=== PATIENT | female | born 1960 ===

== ENCOUNTER 2024-09-14 14:34 | Outpatient (AMB) | payer OTHER, MEDICAID, SELFPAY ==
[2024-09-14 14:38] VITALS: BP 120/62; PULSE 75; O2SAT 100; BMI 24.4
--- NOTE | 2024-09-14 14:38 | MHC.OFFVIS ---
Vital Signs 09/14/24 14:38 Height 5 ft 3 in Weight 138 lb BMI 24.4 BP 120/62 Blood Pressure Location Rt brachial Position Sitting Pulse 75 Pulse Source Doppler Pulse Oximetry (%) 100 Oxygen Delivery Method Room Air Intake Visit Reasons: sleep apnea Outpatient Phlebotomist Required: Yes Outpatient Phlebotomist Name: Leatha Parmjit Cid Allergies No Known Allergies Allergy (Verified 09/14/24 14:50) HPI HPI sleep apnea: Details: 64-year-old lady, nonsmoker, with underlying history of hypertension, fibromyalgia, and headaches referred for evaluation of possible sleep apnea. Patient complains of unrestful sleep. She states that she had sleep apnea testing approximately 13 years prior, however she had significant changes in her weight since. She complains of unrestful sleep and daytime sleepiness. [facility] Social History (Updated 09/14/24 @ 14:53 by Leatha Vargas [facility]) Patient Tobacco Use Status: Never used Tobacco Review of Systems Const Reports daytime sleepiness, Denies excessive sweating, Reports fatigue, Denies fever(s), Reports lethargy, Reports malaise, Denies night sweats, Denies snoring and Denies weight loss Eyes Denies blurry vision and Denies itchy eyes ENT Denies nasal congestion, Denies post nasal drip, Denies sinus pain, Denies sinus pressure and Denies other ( Thrush) Card Denies chest pain, Denies pedal edema, Denies dyspnea, Denies orthopnea and Denies paroxysmal nocturnal dyspnea Resp Denies cough, Denies hemoptysis, Denies excessive phlegm production, Denies dyspnea, Denies snoring and Denies wheezing GI Denies abdominal pain and Denies heartburn Skin/Breast Denies rash Neuro Denies memory loss and Denies seizure-like activity Psych Denies memory loss Endo Denies excessive sweating, Reports fatigue and Denies heat intolerance Adan/Lymph Denies easy bruising Aller/Immun Denies itchy eyes, Denies seasonal rhinorrhea and Denies wheezing Physical Exam Vital Signs: Last Vital Signs Pulse 75 09/14/24 14:38 BP 120/62 09/14/24 14:38 Pulse Ox 100 09/14/24 14:38 Oxygen Delivery Method Room Air 09/14/24 14:38 BMI result Body Mass Index 24.4 Const General: no acute distress and alert Nutritional Appearance: not obese Orientation/consciousness: Other orientation findings ( oriented) HEENT Head: Yes atraumatic Eyes General: appearance normal, both eyes and all related structures Sclerae: sclerae normal EOM: EOMs intact bilaterally Neck Neck: Yes supple Lymphatic: no lymphadenopathy noted Resp Effort & Inspection: normal respiratory effort and no use of accessory muscles Auscultation: clear to auscultation bilaterally Cardio Rate: regular rate Rhythm: regular rhythm Heart sounds: no gallops, no murmurs and no rubs Skin General skin exam: other ( warm) Extrem General: No clubbing, No cyanosis and No edema Assessment & Plan Assessment & Plan (1) ZOHAIB (obstructive sleep apnea): Code(s): G47.33 - Obstructive sleep apnea (adult) (pediatric) Category: Medical Plan: Unrestful sleep morning headaches, daytime sleepiness. [place] Sleepiness Scale score of 15. Will obtain home sleep study. Orders: Orders RT home sleep study Today G47.33 - Obstructive sleep apnea (adult) (pediatric) Coding Level of Care Code New Pt Level 3 (41154) Diagnoses ZOHAIB (obstructive sleep apnea) G47.33
== END 2024-09-14 15:06 | disposition home or self-care (01) ==
PROVIDERS: PCP Internal Medicine; Visit Provider Internal Medicine Pulmonary Disease
DX: G47.33 Obstructive sleep apnea (adult) (pediatric) (principal)
CPT/HCPCS: 99203

== ENCOUNTER → 2024-09-14 14:34 | Outpatient (BNVA) | payer OTHER, MEDICAID, SELFPAY | PROVIDERS: PCP Internal Medicine; Visit Provider Internal Medicine Pulmonary Disease ==

== ENCOUNTER → 2024-12-06 14:51 | Outpatient (REF) | payer OTHER, SELFPAY | LOC: HO.SL 14:51 | PROVIDERS: Visit Provider Internal Medicine Pulmonary Disease | DX: G47.33 Obstructive sleep apnea (adult) (pediatric) (principal) | CPT/HCPCS: 95806 ==

== ENCOUNTER → 2024-12-06 15:29 | Outpatient (BNV) | payer OTHER, SELFPAY | PROVIDERS: Visit Provider Internal Medicine | DX: R06.83 Snoring (principal) | CPT/HCPCS: 95806 ==

== ENCOUNTER 2024-12-28 14:59 | Outpatient (AMB) | payer OTHER, MEDICAID, SELFPAY ==
[2024-12-28 15:03] VITALS: BP 132/67; PULSE 76; O2SAT 98; BMI 25.3
--- NOTE | 2024-12-28 15:03 | A.OFFVIS_ITS ---
Vital Signs 12/28/24 15:03 Height 5 ft 3 in Weight 143 lb BMI 25.3 BP 132/67 Blood Pressure Location Rt brachial Position Sitting Pulse 76 Pulse Source Doppler Pulse Oximetry (%) 98 Oxygen Delivery Method Room Air Intake Visit Reasons: Sleep apnea Airplane Electrician Required: Yes Airplane Electrician Name: Leatha Parmjit Cid Allergies No Known Allergies Allergy (Verified 12/28/24 15:07) HPI HPI Sleep apnea: Details: 64-year-old lady, nonsmoker, with underlying history of hypertension, fibromyalgia, and headaches referred for evaluation of possible sleep apnea. Patient complains of unrestful sleep. She states that she had sleep apnea testing approximately 13 years prior, however she had significant changes in her weight since. She complains of unrestful sleep and daytime sleepiness. After the last office visit patient had new sleep study that did not demonstrate any underlying obstructive sleep apnea. [facility] Social History (Updated 09/14/24 @ 14:53 by Leatha Vargas [facility]) Patient Tobacco Use Status: Never used Tobacco Review of Systems Const Denies daytime sleepiness, Denies excessive sweating, Denies fatigue, Denies fever(s), Denies lethargy, Denies malaise, Denies night sweats, Denies snoring and Denies weight loss Eyes Denies blurry vision and Denies itchy eyes ENT Denies nasal congestion, Denies post nasal drip, Denies sinus pain, Denies sinus pressure and Denies other ( Thrush) Card Denies chest pain, Denies pedal edema, Denies dyspnea, Denies orthopnea and Denies paroxysmal nocturnal dyspnea Resp Denies cough, Denies hemoptysis, Denies excessive phlegm production, Denies dyspnea, Denies snoring and Denies wheezing GI Denies abdominal pain and Denies heartburn Musc Denies myalgias, Denies arthralgias and Denies joint swelling Skin/Breast Denies rash Neuro Denies memory loss and Denies seizure-like activity Psych Denies abnormal sleep pattern, Denies anxiety and Denies memory loss Endo Denies excessive sweating, Denies fatigue and Denies heat intolerance Adan/Lymph Denies easy bruising Aller/Immun Denies itchy eyes, Denies seasonal rhinorrhea and Denies wheezing Physical Exam Vital Signs: Last Vital Signs Pulse 76 12/28/24 15:03 BP 132/67 12/28/24 15:03 Pulse Ox 98 12/28/24 15:03 Oxygen Delivery Method Room Air 12/28/24 15:03 BMI result Body Mass Index 25.3 Const General: no acute distress and alert Nutritional Appearance: not obese Orientation/consciousness: Other orientation findings ( oriented) HEENT Head: Yes atraumatic Eyes General: appearance normal, both eyes and all related structures Sclerae: sclerae normal EOM: EOMs intact bilaterally Neck Neck: Yes supple Lymphatic: no lymphadenopathy noted Resp Effort & Inspection: normal respiratory effort and no use of accessory muscles Auscultation: clear to auscultation bilaterally Cardio Rate: regular rate Rhythm: regular rhythm Heart sounds: no gallops, no murmurs and no rubs Skin General skin exam: other ( warm) Extrem General: No clubbing, No cyanosis and No edema Assessment & Plan Assessment & Plan (1) ZOHAIB (obstructive sleep apnea): Code(s): G47.33 - Obstructive sleep apnea (adult) (pediatric) Category: Medical Plan: Results of sleep study reviewed, no evidence of underlying obstructive sleep apnea. Coding Level of Care Code Est Pt Level 3 (78918) Diagnoses ZOHAIB (obstructive sleep apnea) G47.33
--- OUTSIDE RECORDS SUMMARY | 2024-12-28 16:06 | XMS_ITS | Clinical Summary ---
Author Organization [facility] Address [address] [place] [address] Phone Care Team Providers Care Cage Supervisor Name Role Phone Shaina Arthur MD Primary Care Provider [phone]- [phone] Encounters Date Type Department Care Team Description 12/13/2024 2:17 PM EDT - 12/13/2024 11:59 PM EDT Hospital [facility]counter [facility] at [address] [phone] Encounter for screening mammogram for breast cancer Discharge Disposition: Home or Self Care from Last 3 Months Surgical History Surgery Date Site/Laterality Comments OTHER SURGICAL HISTORY PROCEDURE: HISTORICAL TOTAL HYSTERECTOMY W/O BSO; COMMENT: ?fibroids and dermoids ABDOMINAL SURGERY PROCEDURE: HISTORICAL ABDOMINAL SURGERY; COMMENT: after hysterectomy, patient does not know why BREAST BIOPSY 08/31/1991 - 08/30/1992 Left biopsy in [facility] TONSILLECTOMY PROCEDURE: HISTORICAL TONSILLECTOMY COLONOSCOPY 2010 PROCEDURE: HISTORICAL COLONOSCOPY; COMMENT: nml HYSTERECTOMY Family History Medical History Relation Name Comments Breast cancer Aunt maternal x2 Lymphoma Brother Other: oral can Maternal Grandmother Breast cancer Sister Liver cancer Uncle x3 mat pancreatic canc er Colon cancer Neg Hx Relation Name Status Comments Aunt maternal x2 Alive Brother Father Maternal Grandmother Mother Sister Uncle x3 mat Alive Social History Tobacco Use Types Packs/Day Years Used Date Smoking Tobacco: Never Smokeless Tobacco: Never Alcohol Use Standard Drinks/Week Comments No 0 (1 standard drink = 0.6 oz pur e alcohol) Comments No Sex and Gender Information Value Date Recorded Sex Assigned at Not on file Legal Sex Female 10:36 PM EST Gender Identity Not on file Sexual Orientation Not on file Obstetrics History Para Term AB IAB SAB Ectopic Multiple Livin g Live Births 3 Last Filed Vital Signs Vital Sign Reading Time Taken Comments Blood Pressure - - Pulse - - Temperature - - Respiratory Rate - - Oxygen Saturation - - Inhaled Oxygen Concentration - - Weight 62.6 kg (138 lb) 12/13/2024 2:25 PM EDT Height 160 cm (5' 3 ) 12/13/2024 2:25 PM EDT Body Mass Index 24.45 12/13/2024 2:25 PM EDT Plan of Treatment Health Maintenance Due Date Last Done Comments Pneumococcal Vaccine: 50+ Years (1 of 1 - PCV) 2011 Cholesterol Screening (Lipid Panel) 08/03/2022 Colorectal Cancer Screening: Colonoscopy 08/03/2022 Depression Screening 08/03/2022 HIV Screening 08/03/2022 Hepatitis C Screening 08/03/2022 Social Influencers of Health Screening 08/03/2022 Cervical Cancer Screening: Pap Smear 01/12/2023 01/13/2020 COVID-19 Vaccine ( season) 2024 09/16/2022, 04/07/2022, 06/21/2021, Additional history exists Hypertension/CHF/CAD Annual BMP Blood Test 12/14/2024 Influenza Vaccine (Season Ended) 2025 09/26/2022, 06/28/2018, 06/26/2017, Additional history exists Breast Cancer Screening 12/13/2026 12/14/19, 08/13/2023, 08/11/2022, Additional history exists DTaP,Tdap,and Td Vaccines (3 - Td or Tdap) 12/28/2033 12/29/2023, 03/02/2014 Zoster Vaccines Completed 01/30/2023, 04/07/2022 RSV Immunization Adult Patients Completed 09/06/2024 HIB Vaccines Aged Out No longer eligi ble based on patient's age to complete this topic HPV Vaccines Aged Out No longer eligi ble based on patient's age to complete this topic Hepatitis A Vaccines Aged Out No long er eligible based on patient's age to complete this topic Hepatitis B Vaccines Aged Out No long er eligible based on patient's age to complete this topic IPV Vaccines Aged Out No longer eligi ble based on patient's age to complete this topic MMR Vaccines Aged Out No longer eligi ble based on patient's age to complete this topic Meningococcal ACWY Vaccine Aged Out N o longer eligible based on patient's age to complete this topic Meningococcal B Vaccine Aged Out No l onger eligible based on patient's age to complete this topic Pneumococcal Vaccine: Pediatrics (0 to 5 Years) and At-Risk Patients (6 to 64 Years) Aged Out No longer eligible based on patient's age to complete this topic RSV Immunization Patients Under 20 months Aged Out No longer eligible based on patient's age to complete this topic Varicella Vaccines Aged Out No longer eligible based on patient's age to complete this topic Procedures Procedure Name Priority Date/Time Associated Diagnosis Comments MG MAMMO DIGITAL SCREENING W PREET BILAT Routine 12/13/2024 2:36 PM EDT Encounter for screening mammogram for breast cancer PAP SMEAR Routine 01/13/2020 from Last 3 Months or Most Recently Relevant to Health Maintenance Results * MG Mammo Digital Screening w Preet bilat (12/13/2024 2:36 PM EDT) Anatomical Region Laterality Modality Breast Bilateral Mammography 12/14/2024 9:10 AM EDT Impressions 12/14/2024 9:18 AM EDT No mammographic evidence of malignancy. ?? No suspicious interval change. A negative mammogram in the presence of a clinically suspicious palpable abnormality does not preclude the possibility of malignancy or alter the indications for biopsy. ASSESSMENT: ?? BI-RADS 1: NEGATIVE RECOMMENDATION(S): 1: Routine screening mammogram BILATERAL in 1 year. [facility] location[facility] at [address], [address] -------- FINAL REPORT -------- Dictated By: Andrew Manriquez Dictated Date: 12/14/2024 09:10 ET Assigned Physician: Andrew Manriquez Reviewed and Electronically Signed By: Andrew Manriquez Signed Date: 12/14/2024 09:18 ET Workstation ID: [id number] Transcribed By: Self Edit Transcribed Date: 12/14/2024 09:13 ET Narrative 12/14/2024 9:18 AM EDT EXAM: ??SCREENING MAMMOGRAPHY, BILATERAL HISTORY: ??SCREENING. ??Family history of breast cancer; sister and aunt. Patient reports 40 pound weight loss since previous mammogram COMPARISON: ??08/13/23, 08/11/22, 07/15/21, 07/11/20 TECHNIQUE: Synthesized CC and MLO projections of each breast. ??Tomosynthesis of each breast in the CC and MLO projections. ADDITIONAL IMAGING: None Computer-aided detection was employed with the iCAD ??ProFound AI 3-D. TISSUE DENSITY: There are scattered areas of fibroglandular density. (BI-RADS category B) FINDINGS: RIGHT BREAST: No suspicious mass. No suspicious calcification. No distortion. ?? No additional suspicious right breast findings LEFT BREAST: No suspicious mass. No suspicious calcification. No distortion. ?? No additional suspicious left breast findings Procedure Note Andrew Manriquez MD - 12/14/2024 EXAM: SCREENING MAMMOGRAPHY, BILATERAL HISTORY: SCREENING. Family history of breast cancer; sister and aunt. Patient reports 40 pound weight loss since previous mammogram COMPARISON: 08/13/23, 08/11/22, 07/15/21, 07/11/20 TECHNIQUE: Synthesized CC and MLO projections of each breast.Tomosynthesis of each breast in the CC and MLO projections. ADDITIONAL IMAGING: None Computer-aided detection was employed with the iCAD ProFound AI 3-D. TISSUE DENSITY: There are scattered areas of fibroglandular density.(BI-RADS category B) FINDINGS: RIGHT BREAST: No suspicious mass. No suspicious calcification. No distortion. Noadditional suspicious right breast findings LEFT BREAST: No suspicious mass. No suspicious calcification. No distortion. Noadditional suspicious left breast findings IMPRESSION: No mammographic evidence of malignancy. No suspicious interval change. A negative mammogram in the presence of a clinically suspicious palpableabnormality does not preclude the possibility of malignancy or alter theindications for biopsy. ASSESSMENT: BI-RADS 1: NEGATIVE RECOMMENDATION(S): 1: Routine screening mammogram BILATERAL in 1 year. [facility] location[facility] at [address], [address] -------- FINAL REPORT -------- Dictated By: Andrew Manriquez Dictated Date: 12/14/2024 09:10 ET Assigned Physician: Andrew Manriquez Reviewed and Electronically Signed By: Andrew Manriquez Signed Date: 12/14/2024 09:18 ET Workstation ID: [id number] Transcribed By: Self Edit Transcribed Date: 12/14/2024 09:13 ET us Self Referral Sppl IMG BI PROCEDURES Final Resul t * Pap smear (01/13/2020) 01/13/2020 Narrative HISTORICAL TESTING LAB RESULTING AGENCY - 01/19/2020 2:15 PM EDT [id number] THINPREP PAP, IMAGED: NEGATIVE FOR SQUAMOUS INTRAEPITHELIAL LESION AND MALIGNANCY . LORI ESTEVEZ , CT(ASCP) (CASE ELECTRONICALLY SIGNED 01 19 2020) RESULT OF APTIMA HIGH RISK HPV ASSAY: HIGH RISK HPV: ??NEGATIVE (SEROTYPES 16,18,31,33,35,39,45,51,52,56,58,59,66,68) COMPLETED ON 2020-01-18 ADEQUACY: SATISFACTORY . SOURCE: THINPREP PAP HPV ANY DX: ??REFLEX 16 AND 18, CERVICAL, IMAGED CLINICAL INFORMATION: HPV ANY DIAGNOSIS. HORMONES, PT HAS HAD A HYSTERECTOMY. Z12.4 Lori Malhotra DO LAB CYTOLOGY ORDERABLES Final Result HISTORICAL TESTING LAB RESULTING AGENCY from Last 3 Months or Most Recently Relevant to Health Maintenance Insurance [employer] - [place] Care Teams Cage Supervisor Relationship Specialty Start Date End Date Shaina Arthur MD [address] [address] PCP - General Internal Medicine 12/13/24
== END 2024-12-28 15:11 | disposition home or self-care (01) ==
LOC: HO.HPS 14:59
PROVIDERS: PCP Internal Medicine; Visit Provider Internal Medicine Pulmonary Disease
DX: G47.33 Obstructive sleep apnea (adult) (pediatric) (principal)
CPT/HCPCS: 99213

== ENCOUNTER → 2024-12-28 14:59 | Outpatient (BNVA) | payer OTHER, MEDICAID, SELFPAY | PROVIDERS: PCP Internal Medicine; Visit Provider Internal Medicine Pulmonary Disease ==